=== PATIENT | female | born 1945 | race Caucasian/White ===

== ENCOUNTER → 2016-11-18 | Outpatient (CLI) | payer MEDICARE, BC ==
--- NOTE | 2016-11-19 09:38 | RADRPT ---
PROCEDURE: XR Pelvis. CLINICAL INDICATION: Hip pain TECHNIQUE: Single AP view performed. COMPARISON: No prior studies are available for comparison. FINDINGS: No change in ORIF of right hip with cephalomedullary nail and intramedullary kimani. No change in ORIF of left hip with 3 cannulated screws. There is severe bilateral hip osteoarthrosis. This is associated with joint space narrowing, subchon dral sclerosis, subchondral cyst formation and osteophytosis. There is normal osseous mineralizatio n. No fractures or osseous lesions are identified. The soft tissues are unremarkable. IMPRESSION: No change in ORIF of right hip with cephalomedullary nail and intramedullary kimani. No change in ORIF of left hip with 3 cannulated screws Severe bilateral hip osteoarthrosis. RPTAT: HG[facility] .William Jenkins MD, Date Time Electronically viewed and signed by .William Jenkins MD, on 11/19/2016 09:37 .B/
== END | disposition home or self-care (01) ==
LOC: HKI 14:04
PROVIDERS: ATTEND Orthopaedic Surgery
DX: M25.552 Pain in left hip (principal); M16.0 Bilateral primary osteoarthritis of hip
CPT/HCPCS: 72170; G0463

== ENCOUNTER → 2016-12-25 | Outpatient (CLI) | payer MEDICARE, BC ==
--- NOTE | 2016-12-25 09:43 | RADRPT ---
PROCEDURE: XR Pelvis. CLINICAL INDICATION: Hip pain TECHNIQUE: Single AP view performed. COMPARISON: No prior studies are available for comparison. FINDINGS: ORIF of right hip with an intramedullary kimani and dynamic compression pin. ORIF of old healed left s ubcapital femoral fracture with 3 cannulated screws. There is severe bilateral hip osteoarthrosis. This is associated with joint space narrowing, subchon dral sclerosis, subchondral cyst formation and osteophytosis. There is normal osseous mineralizatio n. No fractures or osseous lesions are identified. The soft tissues are unremarkable. IMPRESSION: ORIF of right hip with an intramedullary kimani and dynamic compression pin ORIF of old healed left subcapital femoral fracture with 3 cannulated screws. Severe bilateral hip osteoarthrosis. RPTAT: HGDB .William Jenkins MD, Date Time Electronically viewed and signed by .William Jenkins MD, on 12/25/2016 09:43 .B/
== END | disposition home or self-care (01) ==
LOC: HKI 12-13 09:22
PROVIDERS: ATTEND Orthopaedic Surgery
DX: M25.552 Pain in left hip (principal); M16.0 Bilateral primary osteoarthritis of hip
CPT/HCPCS: 72170; G0463